=== PATIENT | male | born 1990 | race Caucasian/White ===

== ENCOUNTER 2022-09-11 17:30 | Emergency (ER) | payer SELFPAY ==
[~2022-09-11] VITALS: Ht 177.8 cm; Wt 87.0 kg
[2022-09-11] MEDS ORDERED: IBUPROFEN 600MG TABLET PO ONE (18:45)
[2022-09-11] MEDS ORDERED: CYCLOBENZAPRINE 10MG TABLET PO ONE (18:45)
[2022-09-11 18:46] VITALS: BP 125/83
[2022-09-11] MEDS ORDERED: METH-653 MT (20:08)
== END 2022-09-11 20:23 | disposition home or self-care (01) ==
LOC: ER 17:30
DX: R07.89 Other chest pain (principal); S16.1XXA Strain of muscle, fascia and tendon at neck level, initial encounter; S80.02XA Contusion of left knee, initial encounter; V49.50XA Passenger injured in collision with unspecified motor vehicles in traffic accident, initial encounter; Y93.89 Activity, other specified; Y92.89 Other specified places as the place of occurrence of the external cause; Y99.8 Other external cause status
CPT/HCPCS: 71045; 73562; 99284